=== PATIENT | female | born 1975 | race Caucasian/White ===

== ENCOUNTER 2018-09-08 13:02 | Emergency (ER) | payer BC ==
[~2018-09-08] VITALS: Ht 157.5 cm; Wt 72.6 kg
[~2018-09-08 13:02] MED LIST: NOHOMEMEDICATIONS; NORCO 5-325 TA1 EACH PO; NYQUIL D COLD295 ML; ROBITUSSIN COU118 M5; THERAFLU COLD1 EAC1; VENTOLIN HFA 1818 GM INH; [UNRECOGNIZED DRUG - OTHER]
[2018-09-08] MEDS ORDERED: IBUPROFEN 600600 M1 PO (15:38)
[2018-09-08] MEDS ORDERED: ULTRAM 50MG TAB50 MG PO (15:38)
[2018-09-08 15:59] VITALS: BP 123/74
== END 2018-09-08 15:50 | disposition home or self-care (01) ==
LOC: ER 13:02
DX: S92.242A Displaced fracture of medial cuneiform of left foot, initial encounter for closed fracture (principal); W10.9XXA Fall (on) (from) unspecified stairs and steps, initial encounter; Y93.89 Activity, other specified; Y92.89 Other specified places as the place of occurrence of the external cause; Y99.8 Other external cause status; F17.210 Nicotine dependence, cigarettes, uncomplicated

== ENCOUNTER 2018-10-08 11:20 | Emergency (ER) | payer BC ==
[~2018-10-08] VITALS: Ht 157.5 cm; Wt 73.0 kg
[~2018-10-08 11:20] MED LIST changes: +IBUPROFEN 600600 M1 PO; +ULTRAM 50MG TAB50 MG PO
[2018-10-08 13:26] LABS: ABSOLUTE NEUTROPHILS 2.6 thou/uL (1.4-8.2); BASOPHILS 0.6 % (0.0-2.0); EOSINOPHILS 4.9 % (0.0-3.0); HEMATOCRIT 34.9 % (37.0-47.0); HEMOGLOBIN 11.2 gm/dL (12.0-15.0); LYMPHOCYTES 34.1 % (24.0-44.0); MCH 25.9 pg (26.0-34.0); MCHC 32.1 g/dL (28.0-37.0); MCV 80.7 fL (80.0-100.0); MONOCYTES 8.7 % (1.0-8.0); POLYS 51.7 % (36.0-66.0); RBC 4.33 mil/uL (4.20-5.00); RDW 15.1 % (10.5-14.5)
[2018-10-08 13:31] LABS: ANION GAP 8 mmol/L (7-16); BUN 14 mg/dL (7-18); CALCIUM 9.3 mg/dL (8.5-10.1); CHLORIDE 106 mmol/L (98-107); CO2 27 mmol/L (21-32); CREATININE 0.9 mg/dL (0.6-1.0); GLUCOSE 94 mg/dL (74-106); SODIUM 141 mmol/L (136-145)
[2018-10-08 13:39] LABS: ALBUMIN 3.6 g/dL (3.4-5.0); SGOT 21 U/L (15-37); SGPT 15 U/L (30-65); TOTAL BILIRUBIN 0.2 mg/dL (<0.1-1.0); TOTAL PROTEIN 7.3 g/dL (6.4-8.2); TROPONIN-I <0.06 ng/mL (<0.06)
[2018-10-08 14:07] LABS: PLATELET COUNT 265 thou/uL (150-400)
[2018-10-08 15:25] VITALS: BP 114/68
--- NOTE | 2018-10-09 08:20 | EKG ---
[place] [address] [facility] [place] [address] ELECTROCARDIOGRAM REPORT Name: ANI SNOW [id number] ������������������ Admission: 10/08/18 ������������������ Attend Phys: Discharge: 10/08/18 ������������������ Date of : 75 Report #: [id number] ����������������������������������������������������������������� [id number] THIS REPORT FOR: //name// [facility] ED Test Date: 2018-10-08 Test Time: 11:28:23 Pat Name: ANI SNOW Department: Room: Gender: F [employer]: HORTENSIA : 1975 Requested By: Daphne Oleary Order Number: [id number] MD: Obed De Jesus Measurements Intervals [place] Rate: 62 P: 67 CA: 125 QRS: 25 QRSD: 99 T: 47 QT: 398 QTc: 405 Interpretive Statements Sinus rhythm Probable left atrial enlargement No previous ECG available for comparison Electronically Signed On 10-09-2018 8:20:23 CDT by Obed De Jesus [email or web address] ��������������������������������������������� <ELECTRONICALLY SIGNED> ���������������������������������������� By: Obed De Jesus MD ��������������������������������������������� 10/09/18 0820 [id number] Obed De Jesus MD /SURI
== END 2018-10-08 15:25 | disposition home or self-care (01) ==
LOC: ER 11:20
PROVIDERS: Physician Assistant
DX: R07.89 Other chest pain (principal); F17.210 Nicotine dependence, cigarettes, uncomplicated

== ENCOUNTER 2021-08-30 16:17 | Emergency (ER) | payer OTHER ==
[~2021-08-30] VITALS: Ht 157.5 cm; Wt 78.9 kg
[2021-08-30 16:21] VITALS: BP 186/83
[2021-08-30] MEDS ORDERED: CLEOCIN HCL150 MG PO (16:49)
== END 2021-08-30 17:13 | disposition home or self-care (01) ==
LOC: ER 16:17
DX: T78.40XA Allergy, unspecified, initial encounter (principal); F17.210 Nicotine dependence, cigarettes, uncomplicated; X58.XXXA Exposure to other specified factors, initial encounter